=== PATIENT | female | born 1955 | race Caucasian/White ===

== ENCOUNTER 2016-08-21 11:35 | Emergency (ER) | payer BC ==
[~2016-08-21] VITALS: Ht 165.1 cm; Wt 75.7 kg
[2016-08-21 11:56] VITALS: BP 132/56; PULSE 108; RESP 18; TEMP 97.5; O2SAT 97
--- NOTE | 2016-08-21 12:05 | NUR ---
Luis Enrique edmond in EDM - 08/21/16 at 1208 by CHRISTINA Pt placed to ER bed and to manuel. Pt report given to BRYNN Rivera.
--- NOTE | 2016-08-21 12:05 | NUR ---
Pt placed to ER bed 06 and to gown. Pt report given to BRYNN Perea.
--- NOTE | 2016-08-21 12:09 | NUR ---
Dr. Myers at bedside to assess pt.
--- NOTE | 2016-08-21 12:10 | NUR ---
PT. TO ER AAOX4 PRESENTED WITH C/O LEFT LOWER ABDOMINAL PAIN, STATES ABD PAIN SINCE TUESDAY, STATES PAIN RADIATES TO LEFT LOWER BACK AND LEFT SHOULDER, STATES BURNING SENSATION WHILE URINATING SINCE THIS MORNING, PAIN 5/10
[2016-08-21] MEDS ORDERED: KETOROLAC TROMETHAMINE 30 MG VIAL IVP ONE (12:15)
[2016-08-21] MEDS ORDERED: DEXAMETHASONE SOD PHOSPHATE 10 MG/ML VIAL IVP ONE (12:15)
[2016-08-21] MEDS ORDERED: NACL 0.9% 1,000 ML IV ONE ×2 (12:15→13:45)
[2016-08-21] MEDS ORDERED: PROCHLORPERAZINE EDISYLATE 10 MG/2 ML VIAL IVP ONE (12:15)
[2016-08-21] MEDS ORDERED: ONDANSETRON HCL 4 MG/2 ML VIAL IVP ONE (12:15)
--- NOTE | 2016-08-21 12:30 | NUR ---
pt. will be going to [place] for ct scan as per MD orders, verbalized plan of care to pt, pt. agrees with plan of care
[2016-08-21 12:33] LABS: BILIRUBIN,URINE NEGATIVE (NEGATIVE); CLARITY/URINE CLEAR (CLEAR); COLOR,URINE YELLOW (YELLOW); GLUCOSE,URINE 3+ (NEGATIVE); KETONES,URINE NEGATIVE (NEGATIVE); LEUKOCYTE ESTERASE ,URINE NEGATIVE (NEGATIVE); NITRITE, URINE NEGATIVE (NEGATIVE); PROTEIN URINE NEGATIVE (NEGATIVE); UROBILINOGEN,URINE 0.2 (0.2-1.0)
[2016-08-21 12:34] LABS: BLOOD, URINE TRACE (NEGATIVE)
[2016-08-21 12:37] LABS: BACTERIA,URINE FEW /HPF (None Seen); MUCUS,URINE 1+ /LPF (None Seen); RBC,URINE 0-3 /HPF (0-3); WBC,URINE 0-3 /HPF (0-3)
[2016-08-21 12:43] LABS: BASOPHILS % (AUTO) 0.2 % (0.0-2.0); EOSINOPHILS % (AUTO) 0.2 % (0.0-4.0); HEMATOCRIT 36.5 % (36-48); HEMOGLOBIN 12.6 g/dL (12.0-16.0); LYMPHOCYTES # (AUTO) 0.8 K/uL (1.0-5.5); LYMPHOCYTES % (AUTO) 5.2 % (20.5-51.5); MEAN CORPUSCULAR HEMOGLOBIN 30 pg (27-31); MEAN CORPUSCULAR HGB CONC 35 % (32-36); MEAN CORPUSCULAR VOLUME 88 fL (79.0-98.0); MONOCYTES # (AUTO) 0.9 K/uL (0.0-1.0); MONOCYTES % (AUTO) 5.3 % (1.7-9.3); NEUTROPHILS # (AUTO) 14.4 K/uL (1.8-7.7); NEUTROPHILS % (AUTO) 89.1 % (40.0-70.0); PLATELET COUNT (AUTO) 184 K/uL (130-430); RED BLOOD CELL COUNT(AUTO) 4.16 MIL/uL (4.2-6.2); RED CELL DISTRIBUTION WIDTH 12.6 % (9.0-15.0); WHITE BLOOD COUNT (AUTO) 16.1 K/uL (4.8-10.8)
[2016-08-21 12:55] LABS: CALCIUM 8.5 mg/dL (8.4-11.0); CREATININE 1.35 mg/dL (0.55-1.30); POTASSIUM 3.1 mmol/L (3.5-5.1)
[2016-08-21 12:58] LABS: INR 1.1 (0.8-1.2); PROTHROMBIN TIME 11.5 SECS (9.5-12.5)
[2016-08-21 12:59] LABS: ALBUMIN 3.1 g/dL (3.4-4.8); TOTAL BILIRUBIN 0.6 mg/dL (0.0-1.0); TOTAL PROTEIN, SERUM 7.2 g/dL (6.4-8.3)
--- NOTE | 2016-08-21 13:00 | NUR ---
pt. in bed resting, states she wants to sleep, verbalizes comfort, denies nausea headache vomiting
[2016-08-21] MEDS ORDERED: PIPERACILLIN/TAZO 3.375 GM in NS 50 ML IV ONE (13:45)
[2016-08-21] MEDS ORDERED: PIPERACILLIN/TAZOBACTAM 3.375 GM/VIAL (ZOSYN) IV ONE (13:53)
[2016-08-21] MEDS ORDERED: DULO60CA41 PO (14:42)
[2016-08-21] MEDS ORDERED: INSU300I SQ (14:42)
[2016-08-21] MEDS ORDERED: LOSA50TA3 PO (14:42)
[2016-08-21] MEDS ORDERED: ALPR0.2583 PO (14:42)
[2016-08-21] MEDS ORDERED: HYDR-4023 PO (14:42)
--- NOTE | 2016-08-21 14:50 | NUR ---
gentle ride at bedside for transfering pt. to [facility] for CT scan
--- NOTE | 2016-08-21 16:30 | NUR ---
pt. back from CT in bed 6, states no pain, denies headache denies vomiting, denies SOB , denies Chest Pain
[2016-08-21] MEDS ORDERED: POTASSIUM CHLORIDE 20 MEQ TAB.PRT.SR PO ONE (17:45)
--- NOTE | 2016-08-21 18:00 | NUR ---
pt. in bed, no compaints, explained to the pt. about ct results delay, pt. states no pain, at bedside, given two sips of water upon request MD bowen, IV fluids running, no infiltration noted at this time
[2016-08-21 18:55] VITALS: BP 134/76; PULSE 75; RESP 16; TEMP 98.1; O2SAT 100
--- NOTE | 2016-08-21 18:55 | NUR ---
Patient given written and verbal discharge instructions and verbalizes understanding. ER MD DR. STARR discussed with patient the results and treatment provided. Patient in stable condition. ID arm band removed. IV catheter removed intact and dressing applied, no active bleeding. Rx of FLAGYL, CIPRO, ZOFRAN given. Patient educated on pain management and to follow up with PMD. Pain Scale 0/10 Opportunity for questions provided and answered.
== END 2016-08-21 18:55 | disposition home or self-care (01) ==
LOC: SED 11:35
DX: K52.9 Noninfective gastroenteritis and colitis, unspecified (principal); E11.9 Type 2 diabetes mellitus without complications; I10 Essential (primary) hypertension; F32.9 Major depressive disorder, single episode, unspecified; Z90.49 Acquired absence of other specified parts of digestive tract; Z79.4 Long term (current) use of insulin
CPT/HCPCS: 36415; 80053; 81000; 82150; 83605; 83690; 85025; 85610; 85730; 87040; 96361; 96365; 96375; 99284; J0780; J1100; J1885; J2405; J2543; J7030